=== PATIENT | male | born 1965 | race Caucasian/White ===

== ENCOUNTER → 2016-11-16 | Outpatient (CLI) | payer OTHER ==
[~2016-11-16] MED LIST: ATOR10TA88 PO; SIMV20TA2 PO
== END | disposition home or self-care (01) ==
LOC: C.CPL 12:01
PROVIDERS: ATTEND Orthopaedic Surgery Sports Medicine
DX: Z01.810 Encounter for preprocedural cardiovascular examination (principal)

== ENCOUNTER → 2017-02-07 | Day surgery (SDC) | payer BC ==
[2017-01-31 08:24] VITALS: Ht 167.6 cm; Wt 78.6 kg
[~2017-02-07] VITALS: Ht 167.6 cm; Wt 78.6 kg
[~2017-02-07] MED LIST changes: -ATOR10TA88 PO; +SODIUM CHLORIDE 0.9% 500ML 500 ML IV ONE
--- NOTE | 2017-02-07 13:35 | Endo History and Physical ---
History & Physical Date of Service: February 07, 2017. Chief Complaint: screening Referring Physician: [facility] History of Present Illness 51 yo CM who presents for screening colonoscopy. Past Surgical History Hx Internal Defibrillator: No Hx Pacemaker: No Hx Abdominal Surgery: No Hx of Implantable Prosthesis: No Hx Post-Op Nausea and Vomiting: No Hx Cancer Surgery: No Hx Thoracic Surgery: No Hx Orthopedic: Yes (RT KNEE ACL REPAIR X 2) Hx Urinary Tract Surgery: No Family History None Social History Smoking Status: Never Smoker Hx Substance Use: No Hx Alcohol Use: Yes (OCCASIONALLY) Allergies Coded Allergies: NO KNOWN DRUG ALLERGIES (Verified Allergy, Unknown, ., 01/31/17) Uncoded Allergies: ENVIRONMENTAL (Allergy, Unknown, 11/19/02) N (Allergy, Unknown, 11/19/02) NKDA (Allergy, Unknown, 11/19/02) Current Medications Reported Home Medications Medications Dose Route/Sig Max Daily Dose Days Date Category Zocor (Simvastatin) 20 Mg Tab 20 Mg PO QAM 01/31/17 Reported Vital Signs Weight (Kilograms): 78.64 Height (Feet): 5 Height (Inches): 6 Date Time Temp Pulse Resp B/P Pulse Ox O2 Delivery O2 Flow Rate FiO2 02/07/17 13:24 36.7 60 18 128/80 98 Room Air Physical Exam General Appearance: WD/WN, no apparent distress Respiratory/Chest: Auscultation: breath sounds normal Cardiovascular: Heart Auscultation: RRR Abdomen: Bowel Sounds: normal Inspection & Palpation: soft, non-distended, no tenderness, guarding & rebound Assessment and Plan Assessment: 51 yo CM who presents for screening colonoscopy. Plan: Proceed with colonoscopy.
--- NOTE | 2017-02-07 13:55 | Discharge Instructions ---
Endoscopy Patient Instructions Date / Procedure(s) Performed February 07, 2017. Colonoscopy Allergy Information Coded Allergies: NO KNOWN DRUG ALLERGIES (Verified Allergy, Unknown, ., 01/31/17) Uncoded Allergies: ENVIRONMENTAL (Allergy, Unknown, 11/19/02) N (Allergy, Unknown, 11/19/02) NKDA (Allergy, Unknown, 11/19/02) Discharge Date / Findings February 07, 2017. Colon polyp Internal hemorrhoids Provider Instructions Activity Restrictions - No exercising or heavy lifting for 24 hours. - Do not drink alcohol the day of the procedure. - Do not drive a car or operate machinery until the day after the procedure. - Do not make any important decisions or sign important papers in 24 hours after the procedure. Following Day: - Return to full activity which may include returning to work/school. Diet Start your diet with liquids and light foods (jello, soup, juice, toast). Then eat your usual diet if not nauseated. Treatment For Common After Affects For mild abdominal pain, bloating, or excessive gas: - Rest - Eat lightly - Lie on right side Follow-Up Information Follow-up with [facility] as scheduled Anesthesia Information What You Should Know You have had a procedure that required some medicine to reduce anxiety and discomfort. This treatment is called moderate sedation. After receiving the treatment, you may be sleepy, but you will be able to breathe on your own. The effects of the treatment may last for several hours. Follow these instructions along with Activity/Diet recommendations noted above: * Do NOT do anything where dizziness or clumsiness would be dangerous. * Rest quietly at home today, then you can be up and about tomorrow. * Have a responsible person stay with you the rest of today. * You may have had an I.V. today. If so, you may take the dressing off later today. Recommendations Call your doctor if: * Trouble breathing * Continuous vomiting for more than 24 hours * Temperature above 101 degrees * Severe abdominal pain or bloating * Pain not relieved by pain medicine ordered * There is increased drainage or redness from any incision * A large amount of rectal bleeding greater than 2-3 tablespoons. (If you had a polyp/s removed or have hemorrhoids, a small amount of blood - from the rectum is to be expected.) * You have any unanswered questions or concerns. IN THE EVENT OF A SERIOUS EMERGENCY, GO TO THE NEAREST EMERGENCY ROOM Your discharge instructions were prepared by provider Marlo Black. Patient Instructions Signature Page Ashwin Riggs Patient (or Guardian) Signature/Date: I have read and understand the instructions given to me by my caregivers. Caregiver/RN/Doctor Signature/Date: The above-named patient and/or guardian has received patient instructions on this date. + Original Patient Signature Page (only) stays with chart. Please make copy for patient.
--- NOTE | 2017-02-07 13:58 | GI REPORT ---
Procedure Date: 02/07/2017 1:19 PM Procedure: Colonoscopy Indications: Screening for colorectal malignant neoplasm Medicines: Monitored Anesthesia Care Complications: No immediate complications. Estimated Blood Loss: Estimated blood loss: none. Procedure: Pre-Anesthesia Assessment: - Prior to the procedure, a History and Physical was performed, and patient medications and allergies were reviewed. The patient's tolerance of previous anesthesia was also reviewed. The risks and benefits of the procedure and the sedation options and risks were discussed with the patient. All questions were answered, and informed consent was obtained. Prior Anticoagulants: The patient has taken no previous anticoagulant or antiplatelet agents. ASA Grade Assessment: II - A patient with mild systemic disease. After reviewing the risks and benefits, the patient was deemed in satisfactory condition to undergo the procedure. After I obtained informed consent, the scope was passed under direct vision. Throughout the procedure, the patient's blood pressure, pulse, and oxygen saturations were monitored continuously. The scope was introduced through the anus and advanced to the terminal ileum. The colonoscopy was performed without difficulty. The patient tolerated the procedure well. The quality of the bowel preparation was good. The terminal ileum, ileocecal valve, appendiceal orifice, and rectum were photographed. Findings: A 5 mm polyp was found in the ascending colon. The polyp was sessile. The polyp was removed with a hot snare. Resection and retrieval were complete. Non-bleeding internal hemorrhoids were found during retroflexion. The hemorrhoids were small. Impression: - One 5 mm polyp in the ascending colon, removed with a hot snare. Resected and retrieved. - Non-bleeding internal hemorrhoids. Recommendation: - Resume previous diet. - Continue present medications. - Repeat colonoscopy for surveillance based on pathology results. - Return to primary care physician as previously scheduled. Marlo Black DO 02/07/2017 1:57:39 PM This report has been signed electronically. Note Initiated On: 02/07/2017 1:19 PM I attest to the content of the Intraoperative Record and orders documented therein, exceptions below
[2017-02-07 14:15] VITALS: BP 120/84; PULSE 69; O2SAT 95
== END | disposition home or self-care (01) ==
LOC: C.GI 13:02
PROVIDERS: ATTEND Internal Medicine
DX: Z12.11 Encounter for screening for malignant neoplasm of colon (principal); D12.2 Benign neoplasm of ascending colon; K64.8 Other hemorrhoids

== ENCOUNTER → 2017-04-18 | Outpatient (CLI) | payer BC ==
[~2017-04-18] MED LIST changes: -SODIUM CHLORIDE 0.9% 500ML 500 ML IV ONE
[2017-04-18 07:53] LABS: ALT/SGPT 31 U/L (12-78); AST/SGOT 15 U/L (15-37); BLOOD UREA NITROGEN 19 mg/dl (7-18); BUN/CREATININE RATIO 17.1 (10-20); CALCIUM 9.5 mg/dl (8.5-10.1); CARBON DIOXIDE 30 mmol/L (21-32); CHLORIDE 106 mmol/L (98-107); CHOLESTEROL 289 mg/dl (0-200); GLUCOSE 92 mg/dl (70-99); POTASSIUM 4.5 mmol/L (3.5-5.1); SODIUM 141 mmol/L (136-145); TRIGLYCERIDES 183 mg/dl (0-150); VERY LOW DENSITY LIPOPROT CALC 37 mg/dl
[2017-04-18 07:56] LABS: ALB/GLOB RATIO 1.1 (0.9-2); ALKALINE PHOSPHATASE 74 U/L (45-117); HDL CHOLESTEROL 48 mg/dl; LDL CHOLESTEROL CALCULATED 204 mg/dl
== END | disposition home or self-care (01) ==
LOC: C.LAB 06:43
PROVIDERS: ATTEND Nurse Practitioner Family
DX: E78.00 Pure hypercholesterolemia, unspecified (principal)

== ENCOUNTER → 2017-12-10 | Outpatient (CLI) | payer BC ==
[2017-12-10 09:38] LABS: BLOOD UREA NITROGEN 15 mg/dl (7-18); CALCIUM 9.4 mg/dl (8.5-10.1); CARBON DIOXIDE 32 mmol/L (21-32); CHOLESTEROL 219 mg/dl (0-200); CREATININE 1.15 mg/dl (0.60-1.40); GLUCOSE 99 mg/dl (70-99); POTASSIUM 4.2 mmol/L (3.5-5.1); SODIUM 139 mmol/L (136-145)
[2017-12-10 09:40] LABS: LDL CHOLESTEROL CALCULATED 140 mg/dl
== END | disposition home or self-care (01) ==
LOC: C.LAB1850 07:49
PROVIDERS: ATTEND Nurse Practitioner Family
DX: E78.00 Pure hypercholesterolemia, unspecified (principal)

== ENCOUNTER 2022-01-09 07:30 | Inpatient (IN) ==
[2022-01-09] MEDS ORDERED: HYDROmorphone INJ 1 MG/ML SYRINGE IV STA (07:51)
[2022-01-09] MEDS ORDERED: ONDANSETRON INJ 2 MG/ML 2 ML VIAL IV STA (07:51)
[2022-01-09] MEDS ORDERED: SODIUM CHLORIDE 0.9% 1000ML 1,000 ML IV ONE ×2 (07:51→08:48)
[2022-01-09 08:10] LABS: Basophils # (auto) 0.01 K/uL (0-0.2); Basophils % (auto) 0.1 %; Eosinophils # (auto) 0.05 K/uL (0-0.5); Eosinophils % (auto) 0.3 %; Hematocrit (blood only) 45.2 % (42-52); Hemoglobin 15.3 g/dL (14.0-18.0); Immature Granulocytes # (auto) 0.04 K/uL (0.00-0.02); Immature Granulocytes % (auto) 0.2 %; Lymphocytes # (auto) 2.06 K/uL (1.2-3.4); Lymphocytes % (auto) 10.9 %; Mean Corpuscular Hemoglobin 31.4 pg (25-34); Mean Corpuscular Hgb Conc 33.8 g/dL (32-36); Mean Corpuscular Volume 92.6 fL (80-100); Mean Platelet Volume 10.7 fL (7.4-10.4); Monocytes # (auto) 1.48 K/uL (0.11-0.59); Monocytes % (auto) 7.8 %; Neutrophils # (auto) 15.22 K/uL (1.4-6.5); Neutrophils % (auto) 80.7 %; Platelet Count 271 K/uL (130-400); RDW Coefficient of Variation 13.3 % (11.5-14.5); RDW Standard Deviation 45.4 fL (36.4-46.3); Red Blood Count 4.88 M/uL (4.7-6.1); White Blood Count 18.86 K/uL (4.8-10.8)
[2022-01-09 08:15] LABS: iSTAT Creatinine 1.2 mg/dl (0.6-1.3); iSTAT Ionized Calcium 1.22 mmol/l (1.12-1.32); iSTAT Potassium 3.5 mmol/L (3.3-5.0)
[2022-01-09] MEDS ORDERED: OPTIRAY 320 100ml IV ONE (08:31)
[2022-01-09] MEDS ORDERED: PIPERACILLIN/TAZOBACTAM 3.375 GM in DEXTROSE 5% 100 ML/100 ML BAG IV STA ×2 (08:36→08:48)
[2022-01-09] MEDS ORDERED: PIPERACILL/TAZOBAC CONSULT ACTIVE PRN ×4 (08:36→13:05)
[2022-01-09 08:46] LABS: Albumin Globulin Ratio 1.1 (0.9-2); BUN Creatinine Ratio 13.6 (10-20); Bilirubin,Total 1.2 mg/dl (0.2-1.0); Calcium 9.6 mg/dl (8.5-10.1); Creatinine Clr Calc Pharmacy 68.5 ml/min; Est GFR (African American) 87.1 ml/min; Est GFR (Non-African American) 75.2 ml/min; Globulin 3.5 gm/dl (2.5-4.0); Potassium 3.5 mmol/L (3.5-5.1); Total Protein 7.5 gm/dl (6.0-8.3)
[2022-01-09] MEDS ORDERED: PIPERACILLIN/TAZOBACTAM 4.5 GM/120 ML BAG IV ONE (08:46)
--- NOTE | 2022-01-09 09:00 | CT Scan Report ---
CT SCAN OF THE ABDOMEN AND PELVIS WITH IV CONTRAST CLINICAL HISTORY: Generalized abdominal pain. COMPARISON STUDY: Lumbar spine radiographs dated 07/16/2016. TECHNIQUE: Following the IV administration of 94 cc of Optiray 320, CT scan of the abdomen and pelvi s is performed from the lung bases to the proximal femora. Images are reviewed in the axial, sagittal , and coronal planes. IV contrast was administered without complication. A dose lowering technique wa s utilized adhering to the principles of ALARA. CT DOSE: 373.14 mGy.cm FINDINGS: Lung bases: The heart is normal in size and without pericardial effusion. There is mild elevation of the right hemidiaphragm and dependent atelectasis. The lung bases are otherwise clear. There is a sma ll to moderate hiatal hernia. Liver: The contrast-enhanced liver is normal in size, contour, and attenuation. There is no intrahepa tic biliary ductal dilatation. The hepatic veins and portal veins are patent. Gallbladder: Unremarkable. Spleen: Normal in size and attenuation. Pancreas: Unremarkable. Adrenal glands: Unremarkable. Kidneys: The contrast enhanced kidneys are normal in size and without hydronephrosis. The kidneys enh ance symmetrically. Abdominal vasculature: The abdominal aorta is normal in course and caliber. Bowel: The appendix is abnormally thick-walled, hyperemic, and indistinct in the right lower quadrant . This is best seen on axial image #342. Imaged portions of the appendix measure up to 1.1 cm in diam eter. There is marked periappendiceal inflammation and fluid, and the appearance likely represents pe rforated appendicitis. There is a thick-walled and peripherally enhancing fluid collection in the rig ht lower quadrant immediately adjacent to and possibly partially within the wall of the cecum that is best seen on image #36. This measures 2.0 x 4.2 x 2.7 cm and is typical for abscess. There is signif icant wall thickening of the adjacent cecum as well as the distal/terminal ileum. [id number] fe alejo retention is seen throughout the colon. No bowel obstruction is identified. Peritoneum: No intraperitoneal free air is identified. There is a small amount of free fluid in the r ight paracolic gutter and the right lower quadrant, as well as trace free fluid in the pelvis. There is a small fat-containing umbilical hernia. Lymphadenopathy: None. Pelvic viscera: The bladder, prostate, and seminal vesicles are normal as visualized. Skeletal structures: There is mild lumbosacral spondylosis. Degenerative changes noted in the sacroil iac joints. No lytic or blastic lesions are seen. IMPRESSION: 1. There is a severe inflammatory process centered in the right lower quadrant, most compatible with perforated appendicitis. 2. There is a 4.2 cm abscess in the right lower quadrant located immediately adjacent to and possibly partially within the wall of the adjacent cecum. 3. Significant wall thickening of the cecum and distal/terminal ileum is likely related to adjacent a ppendicitis. 4. Small volume ascites. 5. Additional findings as above. ACT 112: Negative or not required by law. Electronically signed by: Haseeb Mancini M.D. 01/09/2022 8:58 AM
[2022-01-09] MEDS ORDERED: HYDROmorphone INJ 0.5 MG/0.5 ML SYR IV STA ×2 (09:15→12:04)
--- NOTE | 2022-01-09 10:19 | Emergency Department Note ---
History of Present Illness General Chief complaint: Abdominal Pain Stated complaint: abdominal pain, dry heaving, Time Seen by Provider: 01/09/22 07:45 Source: patient Mode of arrival: ambulatory Limitations: no limitations History of Present Illness Maximum Pain Intensity: 8 This patient is a 56-year-old male who presents to the emergency department for evaluation of severe abdominal pain. Patient reports that his pain started approximately 1 week ago and was fairly mild for a few days. Pain worsened over the past 3 days but was primarily located in the right lower quadrant. Today, pain became severe and diffuse across all of his abdomen. He rates his current discomfort an 8/10. His is a nurse practitioner, states that his exam has been consistent with appendicitis and she is concerned for perforation today. Patient has been dry heaving but has not vomited. He denies noticing any fevers. Home Medications Medication Instructions Recorded Confirmed Type No Known Home Medications 01/09/22 01/09/22 History Allergies Allergy/AdvReac Type Severity Reaction Status Date / Time No Known Drug Allergies Allergy Unknown . Verified 01/09/22 08:54 Past Med/Surg History Surgical History S/P ACL surgery S/P knee surgery S/P wisdom tooth extraction Family History Father Myocardial infarction Denies family history of Ovarian cancer Prostate cancer Breast cancer Colorectal cancer Social History Smoking Status: Never smoker Second Hand Exposure: No; Hx Alcohol Use: Yes Alcohol type: beer Alcohol Intake Frequency: 2-3 x/Week Hx Substance Use: No Preferred Language: [place] Communication Ability: Effective Visual Impairment: No Limitations Hearing Ability: Normal Software Trainer Required: No Beliefs That Will Affect Care: None marital status: Current Living Situation: Spouse current occupational status: retired Feels Safe at Home: Yes Safety Concerns: Feels Safe At This Time Childhood Exposure to Second-Hand Smoke: Yes Dental Care, Regularly: Yes Physical Activity Frequency: Daily Seatbelt Use: always Sunscreen Use: Yes Assistive Devices: Glasses Review of Systems A total of 10 systems reviewed and were otherwise negative Physical Exam Vital Signs Vital Signs - 24 hr 01/09/22 07:42 01/09/22 07:45 01/09/22 07:51 Temperature 36.4 C L Temperature Source Oral Pulse Rate 66 66 Pulse Rate from SpO2 Sensor Pulse Rhythm Regular Pulse Strength Normal Respiratory Rate 18 27 H Respiratory Effort / Characteristics Non-Labored Respiratory Depth Normal Blood Pressure Blood Pressure [Right Arm] 100/74 Blood Pressure Mean Blood Pressure Mean [Right Arm] 82 Blood Pressure Position Sitting Pulse Oximetry 95 Oxygen Delivery Method Room Air Sepsis Recent Fever Within 48 Hours No Sepsis New/Unexplained Change in Mental Status No Sepsis Action Taken by Nursing No Action Required 01/09/22 08:00 01/09/22 08:04 01/09/22 08:35 Temperature Temperature Source Pulse Rate 65 71 84 Pulse Rate from SpO2 Sensor 66 88 Pulse Rhythm Pulse Strength Respiratory Rate 22 20 19 Respiratory Effort / Characteristics Respiratory Depth Blood Pressure Blood Pressure [Right Arm] Blood Pressure Mean Blood Pressure Mean [Right Arm] Blood Pressure Position Pulse Oximetry 97 97 94 Oxygen Delivery Method Room Air Sepsis Recent Fever Within 48 Hours Sepsis New/Unexplained Change in Mental Status Sepsis Action Taken by Nursing 01/09/22 08:53 01/09/22 09:00 01/09/22 09:30 Temperature Temperature Source Pulse Rate 83 83 Pulse Rate from SpO2 Sensor 83 85 80 Pulse Rhythm Pulse Strength Respiratory Rate 23 23 Respiratory Effort / Characteristics Respiratory Depth Blood Pressure 135/82 127/80 109/82 Blood Pressure [Right Arm] Blood Pressure Mean 99 95 91 Blood Pressure Mean [Right Arm] Blood Pressure Position Pulse Oximetry 94 94 93 Oxygen Delivery Method Sepsis Recent Fever Within 48 Hours Sepsis New/Unexplained Change in Mental Status Sepsis Action Taken by Nursing 01/09/22 10:00 01/09/22 10:30 Temperature Temperature Source Pulse Rate 95 H 91 H Pulse Rate from SpO2 Sensor 95 H 91 H Pulse Rhythm Pulse Strength Respiratory Rate 17 22 Respiratory Effort / Characteristics Respiratory Depth Blood Pressure 134/80 126/81 Blood Pressure [Right Arm] Blood Pressure Mean 98 96 Blood Pressure Mean [Right Arm] Blood Pressure Position Pulse Oximetry 94 92 Oxygen Delivery Method Sepsis Recent Fever Within 48 Hours Sepsis New/Unexplained Change in Mental Status Sepsis Action Taken by Nursing VITALS: Vitals are noted on the nurse's note and reviewed by myself. GENERAL: This is a 56-year-old male, laying in bed holding his abdomen, moaning. EYES: Pupils equal round and reactive to light and accommodation. MOUTH: Mucous membranes moist. NECK: Supple without nuchal rigidity. No lymphadenopathy. HEART: Regular rate and rhythm without murmurs gallops or rubs. LUNGS: Clear to auscultation bilaterally without wheezes, rales or rhonchi. ABDOMEN: Positive bowel sounds x 4. Abdomen is diffusely tender with guarding. EXTREMITIES: No edema of the lower extremities. NEURO: Patient was alert and oriented to person place and time. Course Consultations Consultation #1: General surgery - Amalia Velarde PA-C and Dr. Loomis Consult[place] [facility] [place] Dr. Cam[place] Administered Medications Enoxaparin Sodium (Enoxaparin Inj 40 Mg/0.4 Ml Syr) 40 mg SQ Q24H HANNAH Stop: 02/08/22 13:59 Last Admin: 01/09/22 14:30 Dose: 40 mg Documented by: [id number] Lactated Ringer's (Lr) 1,000 mls @ 100 mls/hr IV .Q10H HANNAH Stop: 02/08/22 13:04 Last Admin: 01/09/22 13:38 Dose: 100 mls/hr Documented by: [id number] Piperacillin Sod/Tazobactam (Sod 3.375 gm/ Dextrose) 115 mls @ 28.75 mls/hr IV Q8H HANNAH; Protocol Stop: 01/19/22 13:59 Last Admin: 01/09/22 15:34 Dose: 28.8 mls/hr Documented by: [id number] Ketorolac Tromethamine (Ketorolac 30 Mg/Ml Vial) 30 mg IV Q6H PRN PRN Reason: Pain & Pre PT Stop: 01/14/22 13:04 Last Admin: 01/09/22 16:33 Dose: 30 mg Documented by: [id number] Morphine Sulfate (Morphine Sulfate 2 Mg/Ml Carp) 2 mg IV Q3H PRN PRN Reason: Pain (1,2,3,4,5) & Pre PT Stop: 01/23/22 13:04 Last Admin: 01/09/22 16:13 Dose: 2 mg Documented by: [id number] Discontinued Medications Hydromorphone HCl (Hydromorphone Inj 1 Mg/Ml Syringe) 1 mg IV NOW STA Stop: 01/09/22 07:52 Last Admin: 01/09/22 07:59 Dose: 1 mg Documented by: [id number] Hydromorphone HCl (Hydromorphone Inj 0.5 Mg/0.5 Ml Syr) 0.5 mg IV NOW STA Stop: 01/09/22 09:16 Last Admin: 01/09/22 09:18 Dose: 0.5 mg Documented by: [id number] Hydromorphone HCl (Hydromorphone Inj 0.5 Mg/0.5 Ml Syr) 0.5 mg IV NOW STA Stop: 01/09/22 12:05 Last Admin: 01/09/22 12:11 Dose: 0.5 mg Documented by: [id number] Sodium Chloride (Nss 1000ml) 1,000 mls @ 999 mls/hr IV .Q1H1M ONE Stop: 01/09/22 08:51 Last Infusion: 01/09/22 09:08 Dose: 0 mls/hr Documented by: [id number] Admin: 01/09/22 07:59 Dose: 999 mls/hr Documented by: [id number] Piperacillin Sod/Tazobactam (Sod 3.375 gm/ Dextrose) 100 ml in 115 mls @ 230 mls/hr IV NOW STA Stop: 01/09/22 09:05 Last Admin: 01/09/22 08:49 Dose: Not Given Documented by: [id number] Piperacillin Sod/Tazobactam Sod (Zosyn) 4.5 gm in 120 mls @ 240 mls/hr IV NOW ONE Stop: 01/09/22 09:15 Last Admin: 01/09/22 08:49 Dose: Not Given Documented by: [id number] Piperacillin Sod/Tazobactam (Sod 3.375 gm/ Dextrose) 100 ml in 115 mls @ 230 mls/hr IV NOW STA Stop: 01/09/22 09:17 Last Infusion: 01/09/22 09:22 Dose: 0 mls/hr Documented by: [id number] Admin: 01/09/22 08:50 Dose: 230 mls/hr Documented by: [id number] Sodium Chloride (Nss 1000ml) 1,000 mls @ 999 mls/hr IV .Q1H1M ONE Stop: 01/09/22 09:48 Last Infusion: 01/09/22 09:54 Dose: 0 mls/hr Documented by: [id number] Admin: 01/09/22 08:51 Dose: 999 mls/hr Documented by: [id number] Ioversol (Optiray 320 100ml) 94 ml IV ONCE ONE Stop: 01/09/22 08:32 Last Admin: 01/09/22 08:31 Dose: 94 ml Documented by: [id number] Ondansetron HCl (Ondansetron Inj 2 Mg/Ml 2 Ml Vial) 4 mg IV NOW STA Stop: 01/09/22 07:52 Last Admin: 01/09/22 07:59 Dose: 4 mg Documented by: [id number] Medical Decision Making Differential Diagnosis Appendicitis, testicular torsion, infections, diverticulitis, UTI, obstruction, mesenteric ischemia, aortic pathology, inflammatory bowel disease, renal colic, PUD, pancreatitis, biliary pathology, hernia, volvulus, constipation, as well as other pathologies. Home Medications Current Medication List: was personally reviewed by me Laboratory Data Attestation: I reviewed the patient's lab results. Result diagrams: 01/09/22 07:53 01/09/22 07:53 Lab Results 01/09/22 01/09/22 01/09/22 Range/Units 07:53 07:53 07:58 WBC 18.86 H (4.8-10.8) K/uL RBC 4.88 (4.7-6.1) M/uL Hgb 15.3 (14.0-18.0) g/dL POC Hgb 16.0 (14.0-18.0) g/dl Hct 45.2 (42-52) % POC Hct 47 (42-52) % MCV 92.6 (80-100) fL MCH 31.4 (25-34) pg MCHC 33.8 (32-36) g/dL RDW Std Deviation 45.4 (36.4-46.3) fL RDW Coeff of Mandi 13.3 (11.5-14.5) % Plt Count 271 (130-400) K/uL MPV 10.7 H (7.4-10.4) fL Immature Gran % (Auto) 0.2 % Neut % (Auto) 80.7 % Lymph % (Auto) 10.9 % Iron % (Auto) 7.8 % Eos % (Auto) 0.3 % Baso % (Auto) 0.1 % Neut # (Auto) 15.22 H (1.4-6.5) K/uL Lymph # (Auto) 2.06 (1.2-3.4) K/uL Iron # (Auto) 1.48 H (0.11-0.59) K/uL Eos # (Auto) 0.05 (0-0.5) K/uL Baso # (Auto) 0.01 (0-0.2) K/uL Immature Gran # (Auto) 0.04 H (0.00-0.02) K/uL POC Sodium 136 (135-144) mmol/L Sodium 135 L (136-145) mmol/L POC Potassium 3.5 (3.3-5.0) mmol/L Potassium 3.5 (3.5-5.1) mmol/L POC Chloride 97 L (101-112) mmol/L Chloride 97 L (98-107) mmol/L Carbon Dioxide 28 (21-32) mmol/L POC Total CO2 26 (24-31) mmol/L Anion Gap 10 (3-11) POC Anion Gap 18.0 (16-25) mmol/L POC BUN 16 (7-18) mg/dl BUN 15 (6-23) mg/dl Creatinine 1.10 (0.6-1.4) mg/dl POC Creatinine 1.2 (0.6-1.3) mg/dl Est Cr Clr Drug Dosing 68.5 ml/min Est GFR ( Amer) 87.1 ml/min Est GFR (Non-Af Amer) 75.2 ml/min BUN/Creatinine Ratio 13.6 (10-20) Glucose 138 H (70-99(Fasting)) mg/dl POC Glucose (other) 145 H (70-99) mg/dl Lactate (0.4-2.0) mmol/L Calcium 9.6 (8.5-10.1) mg/dl POC Ioniz Calcium Luz 1.22 (1.12-1.32) mmol/l Total Bilirubin 1.2 H (0.2-1.0) mg/dl AST 17 (13-39) U/L ALT 19 (7-52) U/L Alkaline Phosphatase 64 (34-104) U/L Total Protein 7.5 (6.0-8.3) gm/dl Albumin 4.0 (3.4-5.0) gm/dl Globulin 3.5 (2.5-4.0) gm/dl Albumin/Globulin Ratio 1.1 (0.9-2) Lipase 10 L (11-82) U/L SARS-CoV-2, RNA, NAAT (NEGATIVE) 01/09/22 01/09/22 Range/Units 08:12 08:16 WBC (4.8-10.8) K/uL RBC (4.7-6.1) M/uL Hgb (14.0-18.0) g/dL POC Hgb (14.0-18.0) g/dl Hct (42-52) % POC Hct (42-52) % MCV (80-100) fL MCH (25-34) pg MCHC (32-36) g/dL RDW Std Deviation (36.4-46.3) fL RDW Coeff of Mandi (11.5-14.5) % Plt Count (130-400) K/uL MPV (7.4-10.4) fL Immature Gran % (Auto) % Neut % (Auto) % Lymph % (Auto) % Iron % (Auto) % Eos % (Auto) % Baso % (Auto) % Neut # (Auto) (1.4-6.5) K/uL Lymph # (Auto) (1.2-3.4) K/uL Iron # (Auto) (0.11-0.59) K/uL Eos # (Auto) (0-0.5) K/uL Baso # (Auto) (0-0.2) K/uL Immature Gran # (Auto) (0.00-0.02) K/uL POC Sodium (135-144) mmol/L Sodium (136-145) mmol/L POC Potassium (3.3-5.0) mmol/L Potassium (3.5-5.1) mmol/L POC Chloride (101-112) mmol/L Chloride (98-107) mmol/L Carbon Dioxide (21-32) mmol/L POC Total CO2 (24-31) mmol/L Anion Gap (3-11) POC Anion Gap (16-25) mmol/L POC BUN (7-18) mg/dl BUN (6-23) mg/dl Creatinine (0.6-1.4) mg/dl POC Creatinine (0.6-1.3) mg/dl Est Cr Clr Drug Dosing ml/min Est GFR ( Amer) ml/min Est GFR (Non-Af Amer) ml/min BUN/Creatinine Ratio (10-20) Glucose (70-99(Fasting)) mg/dl POC Glucose (other) (70-99) mg/dl Lactate 1.5 (0.4-2.0) mmol/L Calcium (8.5-10.1) mg/dl POC Ioniz Calcium Luz (1.12-1.32) mmol/l Total Bilirubin (0.2-1.0) mg/dl AST (13-39) U/L ALT (7-52) U/L Alkaline Phosphatase (34-104) U/L Total Protein (6.0-8.3) gm/dl Albumin (3.4-5.0) gm/dl Globulin (2.5-4.0) gm/dl Albumin/Globulin Ratio (0.9-2) Lipase (11-82) U/L SARS-CoV-2, RNA, NAAT NEGATIVE (NEGATIVE) Imaging Data Attestation: I personally reviewed and interpreted this imaging study as follows: Radiologist's Impression: Abdomen/Pelvis CT 01/09/22 07:51 CT SCAN OF THE ABDOMEN AND PELVIS WITH IV CONTRAST CLINICAL HISTORY: Generalized abdominal pain. COMPARISON STUDY: Lumbar spine radiographs dated 07/16/2016. TECHNIQUE: Following the IV administration of 94 cc of Optiray 320, CT scan of the abdomen and pelvis is performed from the lung bases to the proximal femora. Images are reviewed in the axial, sagittal, and coronal planes. IV contrast was administered without complication. A dose lowering technique was utilized adhering to the principles of ALARA. CT DOSE: 373.14 mGy.cm FINDINGS: Lung bases: The heart is normal in size and without pericardial effusion. There is mild elevation of the right hemidiaphragm and dependent atelectasis. The lung bases are otherwise clear. There is a small to moderate hiatal hernia. Liver: The contrast-enhanced liver is normal in size, contour, and attenuation. There is no intrahepatic biliary ductal dilatation. The hepatic veins and portal veins are patent. Gallbladder: Unremarkable. Spleen: Normal in size and attenuation. Pancreas: Unremarkable. Adrenal glands: Unremarkable. Kidneys: The contrast enhanced kidneys are normal in size and without hydronephrosis. The kidneys enhance symmetrically. Abdominal vasculature: The abdominal aorta is normal in course and caliber. Bowel: The appendix is abnormally thick-walled, hyperemic, and indistinct in the right lower quadrant. This is best seen on axial image #342. Imaged portions of the appendix measure up to 1.1 cm in diameter. There is marked periappendiceal inflammation and fluid, and the appearance likely represents perforated appendicitis. There is a thick-walled and peripherally enhancing fluid collection in the right lower quadrant immediately adjacent to and possibly partially within the wall of the cecum that is best seen on image #36. This measures 2.0 x 4.2 x 2.7 cm and is typical for abscess. There is significant wall thickening of the adjacent cecum as well as the distal/terminal ileum. [id number] fecal retention is seen throughout the colon. No bowel obstruction is identified. Peritoneum: No intraperitoneal free air is identified. There is a small amount of free fluid in the right paracolic gutter and the right lower quadrant, as well as trace free fluid in the pelvis. There is a small fat-containing umbilical hernia. Lymphadenopathy: None. Pelvic viscera: The bladder, prostate, and seminal vesicles are normal as visualized. Skeletal structures: There is mild lumbosacral spondylosis. Degenerative changes noted in the sacroiliac joints. No lytic or blastic lesions are seen. IMPRESSION: 1. There is a severe inflammatory process centered in the right lower quadrant, most compatible with perforated appendicitis. 2. There is a 4.2 cm abscess in the right lower quadrant located immediately ad jacent to and possibly partially within the wall of the adjacent cecum. 3. Significant wall thickening of the cecum and distal/terminal ileum is likely related to adjacent appendicitis. 4. Small volume ascites. 5. Additional findings as above. ACT 112: Negative or not required by law. Electronically signed by: Haseeb Mancini M.D. 01/09/2022 8:58 AM MDM Narrative Continuous bus driver/monitor: Order was placed for continuous bus driver/monitor. Patient was placed on the bus driver/monitor. Patient was noted to be in normal sinus rhythm at an initial rate of 70 bpm. The patient is a 56-year-old male who presents today for evaluation of severe abdominal pain. Patient did appear to be in fairly significant distress with peritoneal signs on exam. Labs were drawn and revealed a leukocytosis of 18,000. CT did show evidence of a significant inflammatory process in the right lower quadrant, consistent with ruptured appendicitis with abscess formation. General surgery was consulted and did evaluate the patient, recommended transfer to tertiary care facility with IR capabilities. I spoke with the surgeon at [facility], who did accept the patient in transfer but did not have any beds available. I spoke again with Dr. Loomis, who agreed to admit the patient until a bed is available for IV antibiotics. Patient did receive a dose of IV Zosyn, fluids as well as multiple doses of pain medication. He remained stable and comfortable while in the ER. Impression & Plan Ruptured appendicitis, Intra-abdominal abscess Discharge Plan Visit Data Chief Complaint: Abdominal Pain Stated Complaint: abdominal pain, dry heaving, ED Provider: Arjun Thakkar ED Midlevel Provider: Rachele Pritchard Discharge Problem: Ruptured appendicitis, Intra-abdominal abscess Patient Disposition: Admitted As Inpatient Discharge Instructions Interventions: ED Discharge Assessment Last Done: 01/09/22 12:23
--- NOTE | 2022-01-09 12:00 | Surgery Consultation ---
Date of Consultation January 09, 2022 Assessment & Plan (1) Ruptured appendicitis: (2) Abdominal pain, RLQ: 56-year-old male who presented to the emergency room with a history of 1 week of abdominal pain that began last Saturday. States it was soreness and generalized at the beginning and then increased in severity. Associated anorexia, diarrhea, chills however has been afebrile. Has never had similar abdominal pain. CT scan of abdomen and pelvis showing severe inflammatory process in the right lower quadrant consistent with ruptured appendicitis with a 4.2 centimeters abscess in the right lower quadrant near the cecum improved possibly partially within the wall of the cecum. Leukocytosis of 18,000. Hemodynamically stable. Plan: Patient was seen and examined by Dr. Loomis. Dr. Loomis discussed CT scan findings with patient and his . Given the severe amount of inflammation in the right lower quadrant surrounding the appendix and associated 4.2 cm abscess he would benefit from medical management with IV antibiotics and possibly IR drainage of abscess. Given the amount of inflammation, upfront surgery would likely involve an ileocecectomy which we would like to avoid. Discussed interval appendectomy in 3 months. He likely will need a colonoscopy as he is due for this prior to appendectomy. Do not have IR capabilities at this facility so will need transfer to tertiary center for IR drainage. Patient and would prefer [place]. Continue IV Zosyn Keep n.p.o. Continue pain management as needed Dr. Loomis has seen and examined patient and agrees with above. Supervising Physician Co-Signing Physician Notes I have seen and examined the patient personally and agree with the above assessment and plan. We will admit him for IV antibiotics while awaiting transfer to [place] for interventional radiology drainage of the abscess. History of Present Illness Reason for Consultation: Ruptured appendicitis Requesting Physician: Rachele Pritchard PA-C Attending Physician: Rachele Pritchard PA-C History of Present Illness Ashwin is a pleasant 56 year-old male who presented to ED with complaint of abdominal pain that began last Saturday. Seemed to be soreness at first but then pain started to increase more so on Saturday. Associated anorexia, diarrhea, and chills but no fever. No nausea or vomiting. Never had pain like this before. Pain increased today so presented to emergency department. ER work-up showed leukocytosis of 18K . CT scan of abdomen and pelvis showing severe inflammatory process centered in the right lower quadrant most compatible with perforated appendicitis. There is also 4.2 cm abscess in the right lower quadrant located immediately adjacent to and possibly partially within the wall of the adjacent cecum. There is significant wall thickening of the cecum and distal terminal ileum which is likely related to the adjacent appendicitis. Allergies Allergy/AdvReac Type Severity Reaction Status Date / Time No Known Drug Allergies Allergy Unknown . Verified 01/09/22 08:54 Home Medications Medication Instructions Recorded Confirmed Type No Known Home Medications 01/09/22 01/09/22 History Patient History Surgical History S/P ACL surgery S/P knee surgery S/P wisdom tooth extraction Family History Father Myocardial infarction Denies family history of Ovarian cancer Prostate cancer Breast cancer Colorectal cancer Social History Smoking Status: Never smoker Second Hand Exposure: No; Hx Alcohol Use: Yes Alcohol type: beer Alcohol Intake Frequency: 2-3 x/Week Hx Substance Use: No Preferred Language: Lithuanian Communication Ability: Effective Visual Impairment: No Limitations Hearing Ability: Normal Swimming Pool Servicer Required: No Beliefs That Will Affect Care: None marital status: Current Living Situation: Spouse current occupational status: retired Feels Safe at Home: Yes Safety Concerns: Feels Safe At This Time Childhood Exposure to Second-Hand Smoke: Yes Dental Care, Regularly: Yes Physical Activity Frequency: Daily Seatbelt Use: always Sunscreen Use: Yes Assistive Devices: Glasses Physical Exam Constitutional: WD/WN, vitals as above no acute distress and not ill appearing Neck: normal visual inspection and trachea midline Respiratory: normal respiratory effort; no respiratory distress, no labored breathing and no retractions Gastrointestinal (Abdomen): Inspection/Auscultation: abdomen normal to i nspection; abdomen not distended Percussion/Palpation: + abdomen tender (RLQ, positive McBurneys point), + guarding (Voluntary guarding in RLQ) and abdomen soft; abdomen not rigid and abdomen not firm No peritonitis Skin: no rashes, warm and dry Psychiatric: Orientation: alert and oriented x 3 Results & Data ([facility]) Vital Signs (Past 12 Hours) Vital Signs Temp Pulse Resp BP BP Pulse Ox 01/09/22 10:30 91 H 22 126/81 92 01/09/22 10:00 95 H 17 134/80 94 01/09/22 09:30 109/82 93 01/09/22 09:00 83 23 127/80 94 01/09/22 08:53 83 23 135/82 94 01/09/22 08:35 84 19 94 01/09/22 08:04 71 20 97 01/09/22 08:00 65 22 97 01/09/22 07:51 66 27 H 01/09/22 07:45 100/74 01/09/22 07:42 36.4 C L 66 18 95 Laboratory Results 01/09/22 01/09/22 01/09/22 Range/Units 08:16 08:12 07:58 WBC (4.8-10.8) K/uL RBC (4.7-6.1) M/uL Hgb (14.0-18.0) g/dL POC Hgb 16.0 (14.0-18.0) g/dl Hct (42-52) % POC Hct 47 (42-52) % MCV (80-100) fL MCH (25-34) pg MCHC (32-36) g/dL RDW Std Deviation (36.4-46.3) fL RDW Coeff of Mandi (11.5-14.5) % Plt Count (130-400) K/uL MPV (7.4-10.4) fL Immature Gran % (Auto) % Neut % (Auto) % Lymph % (Auto) % Jennings % (Auto) % Eos % (Auto) % Baso % (Auto) % Neut # (Auto) (1.4-6.5) K/uL Lymph # (Auto) (1.2-3.4) K/uL Jennings # (Auto) (0.11-0.59) K/uL Eos # (Auto) (0-0.5) K/uL Baso # (Auto) (0-0.2) K/uL Immature Gran # (Auto) (0.00-0.02) K/uL POC Sodium 136 (135-144) mmol/L Sodium (136-145) mmol/L POC Potassium 3.5 (3.3-5.0) mmol/L Potassium (3.5-5.1) mmol/L POC Chloride 97 L (101-112) mmol/L Chloride (98-107) mmol/L Carbon Dioxide (21-32) mmol/L POC Total CO2 26 (24-31) mmol/L Anion Gap (3-11) POC Anion Gap 18.0 (16-25) mmol/L POC BUN 16 (7-18) mg/dl BUN (6-23) mg/dl Creatinine (0.6-1.4) mg/dl POC Creatinine 1.2 (0.6-1.3) mg/dl Est Cr Clr Drug Dosing ml/min Est GFR ( Amer) ml/min Est GFR (Non-Af Amer) ml/min BUN/Creatinine Ratio (10-20) Glucose (70-99(Fasting)) mg/dl POC Glucose (other) 145 H (70-99) mg/dl Lactate 1.5 (0.4-2.0) mmol/L Calcium (8.5-10.1) mg/dl POC Ioniz Calcium Luz 1.22 (1.12-1.32) mmol/l Total Bilirubin (0.2-1.0) mg/dl AST (13-39) U/L ALT (7-52) U/L Alkaline Phosphatase (34-104) U/L Total Protein (6.0-8.3) gm/dl Albumin (3.4-5.0) gm/dl Globulin (2.5-4.0) gm/dl Albumin/Globulin Ratio (0.9-2) Lipase (11-82) U/L SARS-CoV-2, RNA, NAAT NEGATIVE (NEGATIVE) 01/09/22 01/09/22 Range/Units 07:53 07:53 WBC 18.86 H (4.8-10.8) K/uL RBC 4.88 (4.7-6.1) M/uL Hgb 15.3 (14.0-18.0) g/dL POC Hgb (14.0-18.0) g/dl Hct 45.2 (42-52) % POC Hct (42-52) % MCV 92.6 (80-100) fL MCH 31.4 (25-34) pg MCHC 33.8 (32-36) g/dL RDW Std Deviation 45.4 (36.4-46.3) fL RDW Coeff of Mandi 13.3 (11.5-14.5) % Plt Count 271 (130-400) K/uL MPV 10.7 H (7.4-10.4) fL Immature Gran % (Auto) 0.2 % Neut % (Auto) 80.7 % Lymph % (Auto) 10.9 % Jennings % (Auto) 7.8 % Eos % (Auto) 0.3 % Baso % (Auto) 0.1 % Neut # (Auto) 15.22 H (1.4-6.5) K/uL Lymph # (Auto) 2.06 (1.2-3.4) K/uL Jennings # (Auto) 1.48 H (0.11-0.59) K/uL Eos # (Auto) 0.05 (0-0.5) K/uL Baso # (Auto) 0.01 (0-0.2) K/uL Immature Gran # (Auto) 0.04 H (0.00-0.02) K/uL POC Sodium (135-144) mmol/L Sodium 135 L (136-145) mmol/L POC Potassium (3.3-5.0) mmol/L Potassium 3.5 (3.5-5.1) mmol/L POC Chloride (101-112) mmol/L Chloride 97 L (98-107) mmol/L Carbon Dioxide 28 (21-32) mmol/L POC Total CO2 (24-31) mmol/L Anion Gap 10 (3-11) POC Anion Gap (16-25) mmol/L POC BUN (7-18) mg/dl BUN 15 (6-23) mg/dl Creatinine 1.10 (0.6-1.4) mg/dl POC Creatinine (0.6-1.3) mg/dl Est Cr Clr Drug Dosing 68.5 ml/min Est GFR ( Amer) 87.1 ml/min Est GFR (Non-Af Amer) 75.2 ml/min BUN/Creatinine Ratio 13.6 (10-20) Glucose 138 H (70-99(Fasting)) mg/dl POC Glucose (other) (70-99) mg/dl Lactate (0.4-2.0) mmol/L Calcium 9.6 (8.5-10.1) mg/dl POC Ioniz Calcium Luz (1.12-1.32) mmol/l Total Bilirubin 1.2 H (0.2-1.0) mg/dl AST 17 (13-39) U/L ALT 19 (7-52) U/L Alkaline Phosphatase 64 (34-104) U/L Total Protein 7.5 (6.0-8.3) gm/dl Albumin 4.0 (3.4-5.0) gm/dl Globulin 3.5 (2.5-4.0) gm/dl Albumin/Globulin Ratio 1.1 (0.9-2) Lipase 10 L (11-82) U/L SARS-CoV-2, RNA, NAAT (NEGATIVE) Diagnostic Findings CT SCAN OF THE ABDOMEN AND PELVIS WITH IV CONTRAST CLINICAL HISTORY: Generalized abdominal pain. COMPARISON STUDY: Lumbar spine radiographs dated 07/16/2016. TECHNIQUE: Following the IV administration of 94 cc of Optiray 320, CT scan of the abdomen and pelvis is performed from the lung bases to the proximal femora. Images are reviewed in the axial, sagittal, and coronal planes. IV contrast was administered without complication. A dose lowering technique was utilized adhering to the principles of ALARA. CT DOSE: 373.14 mGy.cm FINDINGS: Lung bases: The heart is normal in size and without pericardial effusion. There is mild elevation of the right hemidiaphragm and dependent atelectasis. The lung bases are otherwise clear. There is a small to moderate hiatal hernia. Liver: The contrast-enhanced liver is normal in size, contour, and attenuation. There is no intrahepatic biliary ductal dilatation. The hepatic veins and portal veins are patent. Gallbladder: Unremarkable. Spleen: Normal in size and attenuation. Pancreas: Unremarkable. Adrenal glands: Unremarkable. Kidneys: The contrast enhanced kidneys are normal in size and without hydronephrosis. The kidneys enhance symmetrically. Abdominal vasculature: The abdominal aorta is normal in course and caliber. Bowel: The appendix is abnormally thick-walled, hyperemic, and indistinct in the right lower quadrant. This is best seen on axial image #342. Imaged portions of the appendix measure up to 1.1 cm in diameter. There is marked periappendiceal inflammation and fluid, and the appearance likely represents perforated appendicitis. There is a thick-walled and peripherally enhancing fluid collection in the right lower quadrant immediately adjacent to and possibly partially within the wall of the cecum that is best seen on image #36. This measures 2.0 x 4.2 x 2.7 cm and is typical for abscess. There is significant wall thickening of the adjacent cecum as well as the distal/terminal ileum. [id number] fecal retention is seen throughout the colon. No bowel obstruction is identified. Peritoneum: No intraperitoneal free air is identified. There is a small amount of free fluid in the right paracolic gutter and the right lower quadrant, as well as trace free fluid in the pelvis. There is a small fat-containing umbilical hernia. Lymphadenopathy: None. Pelvic viscera: The bladder, prostate, and seminal vesicles are normal as visualized. Skeletal structures: There is mild lumbosacral spondylosis. Degenerative changes noted in the sacroiliac joints. No lytic or blastic lesions are seen. IMPRESSION: 1. There is a severe inflammatory process centered in the right lower quadrant, most compatible with perforated appendicitis. 2. There is a 4.2 cm abscess in the right lower quadrant located immediately adjacent to and possibly partially within the wall of the adjacent cecum. 3. Significant wall thickening of the cecum and distal/terminal ileum is likely related to adjacent appendicitis. 4. Small volume ascites. 5. Additional findings as above.
[2022-01-09] MEDS ORDERED: diphenhydrAMINE 50 MG/ML VIAL IV PRN (13:05)
[2022-01-09] MEDS ORDERED: ONDANSETRON INJ 2 MG/ML 2 ML VIAL IV PRN (13:05)
[2022-01-09] MEDS ORDERED: PROMETHAZINE HCL 12.5 MG in SODIUM CHLORIDE 0.9% 50 ML IV PRN (13:05)
[2022-01-09] MEDS: LACTATED RINGER'S 1,000 ML IV SCH ×2 (13:38→22:14)
[2022-01-09 14:25] LABS: Appearance Urine Clear (Clear); Bacteria Urine Automated Negative (Negative); Bilirubin Urine Negative (Negative); Blood Urine Trace (Negative); Cast Urine Automated 0 /lpf (0-5); Color Urine Yellow; Glucose Urine UA Negative (Negative); Ketones Urine 1+ (Negative); Leukocyte Esterase Urine Negative (Negative); Nitrite Urine Negative (Negative); Protein Urine 1+ (Negative); Specific Gravity Urine > 1.045 (1.000-1.030); Urobilinogen Urine Negative (Negative); pH Urine 5.5 (4.5-7.5)
[2022-01-09] MEDS: ENOXAPARIN INJ 40 MG/0.4 ML SYR SQ SCH (14:30)
[2022-01-09] MEDS: PIPERACILLIN/TAZOBACTAM 3.375 GM in DEXTROSE 5% 100 ML IV SCH ×2 (15:34→21:16)
[2022-01-09] MEDS: MoRPHine SULFATE 2 MG/ML CARP IV PRN ×2 (16:13→21:15)
[2022-01-09] MEDS: KETOROLAC 30 MG/ML VIAL IV PRN (16:33)
[2022-01-10] MEDS: KETOROLAC 30 MG/ML VIAL IV PRN ×2 (01:23→19:30)
[2022-01-10] MEDS: PIPERACILLIN/TAZOBACTAM 3.375 GM in DEXTROSE 5% 100 ML IV SCH ×2 (05:12→14:54)
[2022-01-10 06:56] LABS: Basophils # (auto) 0.01 K/uL (0-0.2); Basophils % (auto) 0.1 %; Eosinophils # (auto) 0.03 K/uL (0-0.5); Eosinophils % (auto) 0.3 %; Hematocrit (blood only) 36.6 % (42-52); Hemoglobin 12.4 g/dL (14.0-18.0); Immature Granulocytes # (auto) 0.01 K/uL (0.00-0.02); Immature Granulocytes % (auto) 0.1 %; Lymphocytes # (auto) 0.57 K/uL (1.2-3.4); Lymphocytes % (auto) 5.2 %; Mean Corpuscular Hemoglobin 31.3 pg (25-34); Mean Corpuscular Hgb Conc 33.9 g/dL (32-36); Mean Corpuscular Volume 92.4 fL (80-100); Mean Platelet Volume 10.5 fL (7.4-10.4); Monocytes # (auto) 0.71 K/uL (0.11-0.59); Monocytes % (auto) 6.5 %; Neutrophils # (auto) 9.53 K/uL (1.4-6.5); Neutrophils % (auto) 87.8 %; Platelet Count 237 K/uL (130-400); RDW Coefficient of Variation 13.4 % (11.5-14.5); RDW Standard Deviation 45.7 fL (36.4-46.3); Red Blood Count 3.96 M/uL (4.7-6.1); White Blood Count 10.86 K/uL (4.8-10.8)
--- NOTE | 2022-01-10 08:15 | Surgery Progress Note ---
Date of Service January 10, 2022 Assessment & Plan (1) Ruptured appendicitis: (2) Abdominal pain, RLQ: Plan: 56-year-old male who presented to the emergency room with a history of 1 week of abdominal pain that began last Saturday. States it was soreness and generalized at the beginning and then increased in severity. Associated anorexia, diarrhea, chills however has been afebrile. Has never had similar abdominal pain. CT scan of abdomen and pelvis showing severe inflammatory process in the right lower quadrant consistent with ruptured appendicitis with a 4.2 centimeters abscess in the right lower quadrant near the cecum possibly partially within the wall of the cecum. Plan: Awaiting transfer to [place] for possible IR drainage Continue IV Zosyn Continue clear liquids Continue pain management as needed Encouraged incentive spirometry OOB to chair and ambulate SCDs Discussed with Dr. Loomis who will evaluate patient later today. Admission and Anticipated Discharge Date Admission Date: January 09, 2022 Supervising Physician Co-Signing Physician Notes I have seen and examined the patient personally and agree with the assessment and plan. He is significantly improved after 1 day of IV antibiotics. Continue IV antibiotics. We may be able to avoid drainage of the abscess at this time. Continue to encourage ambulation and incentive spirometry. We will continue conservative management for now. Subjective pain is better controlled no nausea or vomiting feels like cannot take deep breath due to pain but no shortness of breath or chest pain urinating without difficulty passing flatus and diarrhea last night Physical Exam Constitutional: WD/WN, vitals as above no acute distress and not ill appearing Neck: normal visual inspection and trachea midline Respiratory: normal respiratory effort; no respiratory distress, no labored breathing and no retractions Gastrointestinal (Abdomen): Inspection/Auscultation: abdomen normal to inspection and normal bowel sounds; abdomen not distended and no high-pitched sounds Percussion/Palpation: + abdomen tender (RUQ and RLQ), + guarding (Voluntary in RUQ and RLQ, no peritonitis) and abdomen soft; abdomen not rigid Skin: no rashes, warm and dry Psychiatric: A+Ox3, euthymic affect Results & Data ([facility]) Vital Signs (Past 12 Hours) Vital Signs Temp Pulse Resp BP BP Pulse Ox 01/10/22 07:46 36.7 C 84 16 110/75 95 01/09/22 22:27 37.2 C 95 H 17 101/64 90 Laboratory Results 01/10/22 01/09/22 01/09/22 Range/Units 06:21 13:40 08:16 WBC 10.86 H (4.8-10.8) K/uL RBC 3.96 L (4.7-6.1) M/uL Hgb 12.4 L (14.0-18.0) g/dL POC Hgb (14.0-18.0) g/dl Hct 36.6 L (42-52) % POC Hct (42-52) % MCV 92.4 (80-100) fL MCH 31.3 (25-34) pg MCHC 33.9 (32-36) g/dL RDW Std Deviation 45.7 (36.4-46.3) fL RDW Coeff of Mandi 13.4 (11.5-14.5) % Plt Count 237 (130-400) K/uL MPV 10.5 H (7.4-10.4) fL Immature Gran % (Auto) 0.1 % Neut % (Auto) 87.8 % Lymph % (Auto) 5.2 % Cross % (Auto) 6.5 % Eos % (Auto) 0.3 % Baso % (Auto) 0.1 % Neut # (Auto) 9.53 H (1.4-6.5) K/uL Lymph # (Auto) 0.57 L (1.2-3.4) K/uL Cross # (Auto) 0.71 H (0.11-0.59) K/uL Eos # (Auto) 0.03 (0-0.5) K/uL Baso # (Auto) 0.01 (0-0.2) K/uL Immature Gran # (Auto) 0.01 (0.00-0.02) K/uL POC Sodium (135-144) mmol/L Sodium (136-145) mmol/L POC Potassium (3.3-5.0) mmol/L Potassium (3.5-5.1) mmol/L POC Chloride (101-112) mmol/L Chloride (98-107) mmol/L Carbon Dioxide (21-32) mmol/L POC Total CO2 (24-31) mmol/L Anion Gap (3-11) POC Anion Gap (16-25) mmol/L POC BUN (7-18) mg/dl BUN (6-23) mg/dl Creatinine (0.6-1.4) mg/dl POC Creatinine (0.6-1.3) mg/dl Est Cr Clr Drug Dosing ml/min Est GFR ( Amer) ml/min Est GFR (Non-Af Amer) ml/min BUN/Creatinine Ratio (10-20) Glucose (70-99(Fasting)) mg/dl POC Glucose (other) (70-99) mg/dl Lactate 1.5 (0.4-2.0) mmol/L Calcium (8.5-10.1) mg/dl POC Ioniz Calcium Luz (1.12-1.32) mmol/l Total Bilirubin (0.2-1.0) mg/dl AST (13-39) U/L ALT (7-52) U/L Alkaline Phosphatase (34-104) U/L Total Protein (6.0-8.3) gm/dl Albumin (3.4-5.0) gm/dl Globulin (2.5-4.0) gm/dl Albumin/Globulin Ratio (0.9-2) Lipase (11-82) U/L Urine Color Yellow Urine Appearance Clear (Clear) Urine pH 5.5 (4.5-7.5) Ur Specific [place] > 1.045 H (1.000-1.030) Urine Protein 1+ H (Negative) Urine Glucose (UA) Negative (Negative) Urine Ketones 1+ H (Negative) Urine Blood Trace H (Negative) Urine Nitrite Negative (Negative) Urine Bilirubin Negative (Negative) Urine Urobilinogen Negative (Negative) Ur Leukocyte Esterase Negative (Negative) Urine WBC (Auto) 1-5 (0-5) /hpf Urine RBC (Auto) 5-10 H (0-4) /hpf U Hyaline Cast (Auto) 0 (0-5) /lpf U Epithel Cells (Auto) 10-20 H (0-5) /lpf Urine Bacteria (Auto) Negative (Negative) SARS-CoV-2, RNA, NAAT (NEGATIVE) 01/09/22 01/09/22 01/09/22 Range/Units 08:12 07:58 07:53 WBC (4.8-10.8) K/uL RBC (4.7-6.1) M/uL Hgb (14.0-18.0) g/dL POC Hgb 16.0 (14.0-18.0) g/dl Hct (42-52) % POC Hct 47 (42-52) % MCV (80-100) fL MCH (25-34) pg MCHC (32-36) g/dL RDW Std Deviation (36.4-46.3) fL RDW Coeff of Mandi (11.5-14.5) % Plt Count (130-400) K/uL MPV (7.4-10.4) fL Immature Gran % (Auto) % Neut % (Auto) % Lymph % (Auto) % Cross % (Auto) % Eos % (Auto) % Baso % (Auto) % Neut # (Auto) (1.4-6.5) K/uL Lymph # (Auto) (1.2-3.4) K/uL Cross # (Auto) (0.11-0.59) K/uL Eos # (Auto) (0-0.5) K/uL Baso # (Auto) (0-0.2) K/uL Immature Gran # (Auto) (0.00-0.02) K/uL POC Sodium 136 (135-144) mmol/L Sodium 135 L (136-145) mmol/L POC Potassium 3.5 (3.3-5.0) mmol/L Potassium 3.5 (3.5-5.1) mmol/L POC Chloride 97 L (101-112) mmol/L Chloride 97 L (98-107) mmol/L Carbon Dioxide 28 (21-32) mmol/L POC Total CO2 26 (24-31) mmol/L Anion Gap 10 (3-11) POC Anion Gap 18.0 (16-25) mmol/L POC BUN 16 (7-18) mg/dl BUN 15 (6-23) mg/dl Creatinine 1.10 (0.6-1.4) mg/dl POC Creatinine 1.2 (0.6-1.3) mg/dl Est Cr Clr Drug Dosing 68.5 ml/min Est GFR ( Amer) 87.1 ml/min Est GFR (Non-Af Amer) 75.2 ml/min BUN/Creatinine Ratio 13.6 (10-20) Glucose 138 H (70-99(Fasting)) mg/dl POC Glucose (other) 145 H (70-99) mg/dl Lactate (0.4-2.0) mmol/L Calcium 9.6 (8.5-10.1) mg/dl POC Ioniz Calcium Luz 1.22 (1.12-1.32) mmol/l Total Bilirubin 1.2 H (0.2-1.0) mg/dl AST 17 (13-39) U/L ALT 19 (7-52) U/L Alkaline Phosphatase 64 (34-104) U/L Total Protein 7.5 (6.0-8.3) gm/dl Albumin 4.0 (3.4-5.0) gm/dl Globulin 3.5 (2.5-4.0) gm/dl Albumin/Globulin Ratio 1.1 (0.9-2) Lipase 10 L (11-82) U/L Urine Color Urine Appearance (Clear) Urine pH (4.5-7.5) Ur Specific [place] (1.000-1.030) Urine Protein (Negative) Urine Glucose (UA) (Negative) Urine Ketones (Negative) Urine Blood (Negative) Urine Nitrite (Negative) Urine Bilirubin (Negative) Urine Urobilinogen (Negative) Ur Leukocyte Esterase (Negative) Urine WBC (Auto) (0-5) /hpf Urine RBC (Auto) (0-4) /hpf U Hyaline Cast (Auto) (0-5) /lpf U Epithel Cells (Auto) (0-5) /lpf Urine Bacteria (Auto) (Negative) SARS-CoV-2, RNA, NAAT NEGATIVE (NEGATIVE)
[2022-01-10] MEDS: LACTATED RINGER'S 1,000 ML IV SCH ×2 (08:36→18:22)
[2022-01-10] MEDS: ENOXAPARIN INJ 40 MG/0.4 ML SYR SQ SCH (14:55)
--- NOTE | 2022-01-11 11:09 | Discharge Summary ---
Date of Service January 11, 2022 Admission HPI Per Admitting Provider Ashwin is a pleasant 56 year-old male who presented to ED with complaint of abdominal pain that began last Saturday. Seemed to be soreness at first but then pain started to increase more so on Saturday. Associated anorexia, diarrhea, and chills but no fever. No nausea or vomiting. Never had pain like this before. Pain increased today so presented to emergency department. ER work-up showed leukocytosis of 18K . CT scan of abdomen and pelvis showing severe inflammatory process centered in the right lower quadrant most compatible with perforated appendicitis. There is also 4.2 cm abscess in the right lower quadrant located immediately adjacent to and possibly partially within the wall of the adjacent cecum. There is significant wall thickening of the cecum and distal terminal ileum which is likely related to the adjacent appendicitis. Principal Diagnosis Acute perforated appendicitis with intra-abdominal abscess Discharge Data Allergies Allergy/AdvReac Type Severity Reaction Status Date / Time No Known Drug Allergies Allergy Unknown . Verified 01/09/22 08:54 Consultations 01/09/22 11:26 ED Decision to Admit Stat Ordered Studies 01/09/22 07:51 CT abd pelvis IV con only Stat Hospital Course (1) Ruptured appendicitis: (2) Abdominal pain, RLQ: Patient was admitted to medical/surgical floor awaiting transfer to [facility] for IR drainage of intra-abdominal abscess. IV Zosyn was continued, IV Toradol and Morphine as needed for pain, activity as tolerated, SCDs and incentive spirometer. Repeat labs in am of HD # 1 showed improvement of leukocytosis to 10K (19 k in ED). Afebrile, vital signs stable. He pain was better controlled but still present. Urinating without difficulty. Sensation of unable to take deep breath because of abdominal pain but no chest pain or shortness of breath. Later in the day of HD # 1 , [facility] had a bed available and patient was transferred for further management. Total Time Total Time Spent Total Time Spent (In Minutes): 10 minutes Total Time Includes: Discharge Planning Discharge Plan Discharge Items Patient Disposition: Transfer Acute Care Hospital Reason For Visit: ACUTE APPENDICITIS WITH ABSCESS Discharge Diagnosis: acute appendicitis with abscess Activity: Per Instructions section Non-emergency contact: Surgeon Call non-emergency contact if: your symptoms worsen, your pain is not controlled, your pain is concerning for you, your temperature is above 101.5, your wound has increased drainage and your wound pain has increased Follow-up/Referrals: Alexander Servin III, YAMILETH [Primary Care Provider] - Diet: Clear liquid Addtl Attending Provider Instructions: Transfer to [facility] for potential Interventional Radiology drainage procedure Pending Studies at Discharge: No Stand-Alone Forms: My [facility] Skilled Items Patient informed of condition?: Yes DNR: No Discharge Level of Care: Other Communicable Disease: No Discharge Prognosis: Stable Lines: Peripheral IV Urinary Catheter: No Medications and DC Order Prescriptions: No Action No Known Home Medications RF: 0 Discharge Orders: Discharge Order (Routine); Ordered 01/10/22 Ordered By: Eric Loomis Admission Data Admit Date/Time: 01/09/22 11:29 Attending Provider: Eric Loomis Admit Provider: Eric Loomis Primary Care Provider: Alexander Servin III Other Providers: Eric Loomis Other Interventions: Discharge Summary Assessment (RN) Last Done: 01/10/22 19:13
== END 2022-01-10 19:58 | disposition short-term general hospital (02) | DRG 373 ==
LOC: ED 07:30 → 3W 11:29
DX: Z82.49 Family history of ischemic heart disease and other diseases of the circulatory system; K35.33 Acute appendicitis with perforation, localized peritonitis, and gangrene, with abscess